=== PATIENT | female | born 1960 | race Caucasian/White ===

== ENCOUNTER 2017-10-22 18:47 | Emergency (ER) | payer BC ==
[2017-10-22] MEDS: KETOROLAC 60 MG INJ IM (20:42)
[2017-10-22] MEDS: METHYLPREDNISOLONE 125 MG INJ IM (20:55)
[2017-10-22] MEDS: FAMOTIDINE 20 MG TAB PO (20:57)
[2017-10-22] MEDS: DIPHENHYDRAMINE 25 MG CAP PO (20:58)
[2017-10-22] MEDS: TETRACAINE 0.5% 4 ML OPH BOTH EYES (23:18)
== END 2017-10-22 23:50 | disposition home or self-care (01) ==
LOC: FTE 18:47
DX: H01.9 Unspecified inflammation of eyelid (principal); H20.9 Unspecified iridocyclitis; I10 Essential (primary) hypertension; Z85.3 Personal history of malignant neoplasm of breast
CPT/HCPCS: 96372; 99284-25